=== PATIENT | female | born 1985 ===

== ENCOUNTER 2018-08-27 01:13 | Inpatient (IN) | payer OTHER ==
[2018-08-27 01:34] VITALS: BMI 25.7
[2018-08-27] MEDS ORDERED: Lactated Ringer's 1,000 ML IV ONE (01:38)
[2018-08-27] MEDS ORDERED: Lactated Ringer's 1,000 ML IV SCH (01:45)
--- NOTE | 2018-08-27 02:14 | OBADHP ---
Datetime: 08/27/2018 01:40 Admit Comment, IP Provider: 32yo IUP at 40+w c/o CTX since 1h prior to coming to [facility]. CTX q 5m no SROM. no VB. +FM care: CP Dr Chew - transferred from [facility] POBGYNH: x 1; TOP x 1 PMH: denies PSH: foot surgery NKA PSoH: denies smoking ETOH drugs A: IUP at 40+w active phase of labor PLAN: admit to L_D Discussion about labor, pain management, delivery and care Anticipate Pelvic Type - PN: Adequate Extremities - PN: Normal Abdomen - PN: Normal Back - PN: Normal Breast - PN: Not Done Lungs - PN: Normal Heart - PN: Normal Thyroid - PN: Normal Neurologic - PN: Normal HEENT - PN: Normal General - PN: Normal Presentation-Admit: Vertex FHR - Baseline A Provider: 130 Membranes, Provider: Intact Pool Provider: Negative IP Hx Assessment: The History has been Reviewed and is Current IP Chief Complaint: Uterine contractions NICHD Variability Prov Fetus A: Moderate 6-25bpm NICHD Accel Fetus A IP Provider: [id number] FHR Category Provider Fetus A: Category I NICHD Decel Fetus A IP Provider: None Dilatation, Provider: 5-6 Effacement, Provider: 90 Station, Provider: -1 Genitourinary Exam: Normal DTRs - PN: Normal IP Adm Impression: Term, intrauterine ; Active labor; Intact Membranes IP Admit Plan: Admit to unit; Initiate labor protocol
[2018-08-27] MEDS ORDERED: Oxytocin 30 UNIT 30 UNITS/500 ML BAG IV ONE (02:28)
[2018-08-27] MEDS ORDERED: OXYTOCIN/0.9 % NS 20 UNIT/1,000 ML BAG IV SCH (02:30)
[2018-08-27 03:10] LABS: BASO % 0.1 % (0.0-2.0); EOS # 0.1 K/uL (0.0-0.7); EOS % 0.8 % (0.0-4.0); HEMOGLOBIN 13.7 g/dL (12.0-16.0); LYMPH # 2.3 K/uL (1.0-4.3); LYMPH % 23.5 % (20.0-40.0); MEAN CELL VOLUME 90.7 fl (81.0-99.0); MEAN CORPUSCULAR HEMOGLOBIN 27.7 pg (27.0-31.0); MEAN CORPUSCULAR HGB CONC 30.6 g/dL (33.0-37.0); MEAN PLATELET VOLUME 9.1 fl (7.2-11.7); MONO # 0.9 K/uL (0.0-0.8); MONO % 9.3 % (0.0-10.0); NEUT # 6.4 K/uL (1.8-7.0); NEUT % 66.3 % (50.0-75.0); NRBC % 0.3 % (0.0-0.0); RBC 4.94 Mil/uL (3.80-5.20); RED CELL DISTRIBUTION WIDTH 17.3 % (11.5-14.5); WHITE BLOOD COUNT 9.7 K/uL (4.8-10.8)
[2018-08-27] MEDS ORDERED: Lidocaine 1% Inj (20ml) ONE (03:10)
[2018-08-27] MEDS ORDERED: Oxycodone/Acetaminophen 5/325 mg Tab PO PRN ×2 (03:37→05:38)
[2018-08-27] MEDS ORDERED: Benzocaine/Menthol SPRAY TOP PRN ×2 (03:37→05:38)
--- NOTE | 2018-08-27 06:40 | OBDS ---
DELIVERY PERSONNEL Delivery Doctor: Mary Chew DO Online Publisher: Anila Cruz RN MATERNAL INFORMATION Delivery Anesthesia: Local Medications in Delivery: Oxytocin Estimated Blood Loss (ml): 200 (QBL) Placenta Cultured: No Maternal Complications: None Provider Comments: She was fully dilated +1 station - AROM clear fluid. Over intact perineum, of live male infant. was crying spontaneously. Delayed cord clamping was done. Cord clamped and cut by father. Infant was placed on mother's chest for skin to skin. 9,9. Placenta deli marilou intact spontaneously. She remianed stable. Before placenta delivered: Fluid in drape estimtated 100cc After placenta delivery : Fluid 300cc EBL 200cc LABOR SUMMARY EDC: 08/23/2018 00:00 No. Babies in Womb: 1 Attempted: No Labor Anesthesia: None LABOR INFORMATION Reason for Induction: Not Applicable Onset of Labor: 08/27/2018 00:00 Complete Dilatation: 08/27/2018 03:00 Oxytocin: N/A Group B Beta Strep: Negative Steroids Given: None Reason Steroids Not Administered: Not Applicable MEMBRANES Membranes Rupture Method: Spontaneous Rupture of Membranes: 08/27/2018 03:00 Length of Rupture (hrs): 0.28 Amniotic Fluid Color: Clear Amniotic Fluid Amount: Small Amniotic Fluid Odor: Normal STAGES OF LABOR Stage 1 hrs: 3 Stage 1 min: 0 Stage 2 hrs: 0 Stage 2 min: 17 Stage 3 hrs: 0 Stage 3 min: 22 Total Time in Labor hrs: 3 Total Time in Labor min: 39 VAGINAL DELIVERY Episiotomy: None Laceration Extension: Second Degree Laceration Type: Perineal Laceration Repair: Yes Laceration Repair Note: Lidocaine infiltrated (3-4cc) ... 2.0 Vicryl Rapide suture used to repair p erineal laceration Initial Vag Sponge Count: 5 Final Vag Sponge Count: 5 Initial Vag Sharps Count: 1 Final Vag Sharps Count: 1 Sponge Count Correct: Yes Sharps Count Correct: Yes BABY A INFORMATION Delivery Date/Time: 08/27/2018 03:17 Method of Delivery: Vaginal Born in Route : No : N/A Forceps: N/A Vacuum Extraction: N/A Shoulder Dystocia : No SHOULDER DYSTOCIA BABY A Delivery Date/Time: 08/27/2018 03:17 PRESENTATION/POSITION BABY A Presentation: Cephalic Cephalic Presentation: Vertex PLACENTA INFORMATION BABY A Placenta Delivery Time : 08/27/2018 03:39 Placenta Method of Delivery: Spontaneous Placenta Status: Delivered SCORES BABY A Heart Rate 1 min: >100 bpm Resp Effort 1 min: Good Cry Reflex Irritability 1 min: Cough or Sneeze or Pulls Away Muscle Tone 1 min: Active Motion Color 1 min: Body [place], Extremities Blue Resuscitation Effort 1 min: Tactile Stimulation SCORE 1 MIN: 9 Heart Rate 5 min: >100 bpm Resp Effort 5 min: Good Cry Reflex Irritability 5 min: Cough or Sneeze or Pulls Away Muscle Tone 5 min: Active Motion Color 5 min: Body [place], Extremities Blue Resuscitation Effort 5 min: Tactile Stimulation SCORE 5 MIN: 9 INFANT INFORMATION BABY A Gestational Age at Delivery: 40.4 Gestational Status: Term Outcome : Liveborn Infant Condition : Stable Sex: Male IDENTIFICATION/MEDS BABY A ID Band Number: [id number] ID Band Location: Left Leg; Left Arm WEIGHT/LENGTH BABY A Infant Birthweight (gms): 3560 Infant Weight (lb): 7 Weight (oz): 14 CORD INFORMATION BABY A No. Cord Vessels: 3 Nuchal Cord : N/A Cord Blood Taken: Yes Suction: Mouth; Nose
[2018-08-27] MEDS: OXYTOCIN/0.9 % NS 20 UNIT/1,000 ML BAG IV SCH ×2 (13:48→16:38)
[2018-08-28 07:19] LABS: BASO % 0.2 % (0.0-2.0); EOS # 0.2 K/uL (0.0-0.7); EOS % 1.6 % (0.0-4.0); HEMOGLOBIN 12.1 g/dL (12.0-16.0); LYMPH # 2.5 K/uL (1.0-4.3); LYMPH % 24.2 % (20.0-40.0); MEAN CELL VOLUME 83.6 fl (81.0-99.0); MEAN CORPUSCULAR HEMOGLOBIN 27.9 pg (27.0-31.0); MEAN CORPUSCULAR HGB CONC 33.3 g/dL (33.0-37.0); MEAN PLATELET VOLUME 8.8 fl (7.2-11.7); MONO # 0.7 K/uL (0.0-0.8); MONO % 6.8 % (0.0-10.0); NEUT # 6.9 K/uL (1.8-7.0); NEUT % 67.2 % (50.0-75.0); RBC 4.35 Mil/uL (3.80-5.20); RED CELL DISTRIBUTION WIDTH 16.1 % (11.5-14.5); WHITE BLOOD COUNT 10.2 K/uL (4.8-10.8)
[2018-08-29 03:24] VITALS: BP 104/61; PULSE 80; RESP 20; TEMP 98.7
--- NOTE | 2018-08-29 08:59 | OBDCSUM ---
Datetime: 08/28/2018 21:30 Discharged to, Provider: Home Follow up at, Provider: Dr. Chew Disch Instr Activity: Normal activity Disch Instr Diet: Regular Discharge Diet restrict Prov: n/a Discharge Instructions, Provider: Routine instructions given Discharge Diagnosis, Provider: Term Delivered Discharge Time: 08/28/2018 21:30 Follow up in weeks, Provider: 4-6weeks Disch Referrals: None Contraception discussed, Prov: Yes Disch Activity Restrictions: No exercising; Minimize stair-climbing; No sexual activity; Nothing in vagina - [place], tampons, douche
--- NOTE | 2018-08-29 08:59 | OBPPN ---
Datetime: 08/28/2018 21:20 PP Pain Prov: Within normal limits PP Nausea Prov: Denies PP Flatus Prov: Yes PP Breasts Prov: Not Done PP Heart Prov: Normal PP Lungs Prov: Normal PP Abdomen/Uterus Prov: Normal PP Lochia Prov: Normal PP Vulva/Perineum Prov: Not Done PP Extremities Prov: Normal PP Progress Prov: Normal PP Impression Prov: Normal progression PP Plan Prov: Discharge PP Progress Note Prov: 32 y/o s/p on 08/27/18 PPD1 (more than 36h PP) with normal postpartu m progression, seen and examined at this time for D/C home. Patient states feeling well, breastfeedin g w/o difficulties, ambulating w/o dizziness. Denies NEGRON, chest pain, abdominal pain, palpitations, N/ V, calf pain. O: VS WNL HEENT: NCAT RESP: CTA b/l CV: RRR, S1 S2 normal, no murmurs EXT: Marvin's negative A/P 32 y/o s/p on 08/27/18 PPD1 (more than 36h PP) with normal progression. Patient is being D/C home today, instructions given to f/u with PMD for a post- visit within 4 weeks and with the retail helper in within 2 to3 days for a f/u checkup. ED return instruct ions given to go to the ED if there is excessive bleeding, fever or pain without relief from medicati on. PT was urged if feeling sad, mood swing, depression, neglect of baby, suicidal thoughts, homicidal thoughts should go to ED or call 911 for help. Case and discharge discussed with attending Dr Arpit Corley MD PGY1 Vital Signs Provider PP: Reviewed; Within Normal Limits Datetime: 08/27/2018 10:33 PP CVA Tenderness Prov: Normal
== END 2018-08-28 21:30 | disposition home or self-care (01) | DRG 807 ==
LOC: H.EROB2 01:13 → H.L&D 01:38 → H.OB/GYN 05:30
PROVIDERS: ADMIT Obstetrics & Gynecology; ATTEND Obstetrics & Gynecology
PROC: 10E0XZZ Delivery of Products of Conception, External Approach (ICD-10-PCS; principal; 2018-08-27)
PROC: 0KQM0ZZ Repair Perineum Muscle, Open Approach (ICD-10-PCS; 2018-08-27)
PROC: 10907ZC Drainage of Amniotic Fluid, Therapeutic from Products of Conception, Via Natural or Artificial Opening (ICD-10-PCS; 2018-08-27)
PROC: 4A1HXCZ Monitoring of Products of Conception, Cardiac Rate, External Approach (ICD-10-PCS; 2018-08-27)
DX: O48.0 Post-term pregnancy (principal); Z37.0 Single live birth; O70.1 Second degree perineal laceration during delivery; Z3A.40 40 weeks gestation of pregnancy